=== PATIENT | female | born 1970 | race African-American/Black ===

== ENCOUNTER 2023-05-29 23:55 | Emergency (ER) | payer MEDICAID, OTHER ==
[~2023-05-29] VITALS: Ht 172.7 cm; Wt 118.0 kg
[2023-05-30 00:49] VITALS: TEMP 97.6; O2SAT 100
[2023-05-30] MEDS ORDERED: NAP5EC MT (01:36)
[2023-05-30] MEDS ORDERED: METH-653 MT (01:36)
[2023-05-30 01:45] VITALS: BP 151/87; PULSE 69; RESP 17
[2023-05-30] MEDS ORDERED: KETOROLAC 60MG/2ML VIAL IM ONE (01:45)
== END 2023-05-30 03:00 | disposition home or self-care (01) ==
LOC: ER 23:55
DX: M54.9 Dorsalgia, unspecified (principal); Z98.890 Other specified postprocedural states
CPT/HCPCS: 96372; 99283; J1885; Z7610

== ENCOUNTER 2024-07-18 10:44 | Emergency (ER) | payer MEDICAID, OTHER ==
[~2024-07-18] VITALS: Ht 172.7 cm; Wt 120.0 kg
[~2024-07-18 10:44] MED LIST: METH-653 MT; NAP5EC MT
[2024-07-18 11:00] VITALS: O2SAT 99
[2024-07-18 11:18] LABS: CLARITY URINE CLEAR (CLEAR); COLOR URINE YELLOW (YELLOW); GLUCOSE URINE NEGATIVE (NEGATIVE); KETONES URINE NEGATIVE (NEGATIVE); LEUKOCYTE ESTERASE URINE NEGATIVE (NEGATIVE); NITRITE URINE NEGATIVE (NEGATIVE); OCCULT BLOOD URINE TRACE (NEGATIVE); PROTEIN URINE NEGATIVE (NEGATIVE); SPECIFIC GRAVITY URINE 1.022 (1.005-1.030)
[2024-07-18 11:29] LABS: BASOPHILS % 0.7 % (0.0-2.0); EOSINOPHILS % 2.1 % (0.0-5.0); HEMATOCRIT. 40.3 % (36.0-48.0); HEMOGLOBIN. 12.9 g/dL (12.0-16.0); LYMPHOCYTES % 42.6 % (20.0-50.0); MEAN CORPUSCULAR HEMOGLOBIN 28.2 pg (28.0-32.0); MEAN CORPUSCULAR HGB CONC 31.9 g/dL (31.0-37.0); MEAN CORPUSCULAR VOLUME 88.3 fL (81.0-99.0); MEAN PLATELET VOLUME 7.7 fl (7.4-10.4); MONOCYTES % 5.6 % (2.0-8.0); PLATELET 274 x1000/uL (130-400); RED BLOOD CELL COUNT 4.56 mill/uL (4.2-5.4); RED CELL DISTRIBUTION WIDTH 14.7 % (11.6-14.6); WHITE BLOOD COUNT 5.4 x1000/uL (4.5-11.0)
[2024-07-18 11:38] LABS: BACTERIA URINE 1+; SQUAMOUS EPITHELIAL CELL URINE 2+ /lpf (RARE/1+); YEAST URINE NONE SEEN
[2024-07-18 11:41] LABS: CHLORIDE 107 mEq/L (98-107); POTASSIUM 4.3 mEq/L (3.5-5.1); SODIUM 141 mEq/L (136-145)
[2024-07-18 11:42] LABS: CALCIUM 9.7 mg/dL (8.7-10.4); CARBON DIOXIDE 31 mEq/L (21-32)
[2024-07-18 11:47] LABS: GLUCOSE 98 mg/dL (70-105); UREA NITROGEN BLOOD 10 mg/dL (9-23)
[2024-07-18] MEDS ORDERED: METH-653 MT (13:02)
[2024-07-18] MEDS ORDERED: CEPH500C2 MT (13:02)
[2024-07-18 13:23] VITALS: BP 155/72; PULSE 76; RESP 18; TEMP 36.94740; O2SAT 98
== END 2024-07-18 13:26 | disposition home or self-care (01) ==
LOC: ER 11:14
DX: M54.50 Low back pain, unspecified (principal); N39.0 Urinary tract infection, site not specified; J45.909 Unspecified asthma, uncomplicated; Z98.890 Other specified postprocedural states
CPT/HCPCS: 36415; 74176; 80048; 81003; 81025; 85025; 99284